=== PATIENT | male | born 1990 | race Caucasian/White ===

== ENCOUNTER 2018-01-29 19:01 | Emergency (ER) | payer BC ==
[2018-01-29 19:15] VITALS: BP 161/99
--- NOTE | 2018-01-29 19:31 | UC ---
FLU HPI - HPI Summary HPI Summary: This patient is a 28 year old M [place] [facility] [place] Zeinab with a chief complaint of a general illness for the last week. The patient rates the pain 4/10 in severity. Patient reports myalgia, eye discharge in the morning, pain with deep breaths, nasal congestion, productive cough, sore throat, and ears getting plugged. Patient denies fever. - History of Current Complaint Chief Complaint: UCGeneralIllness Stated Complaint: ACHES, AND CHEST CONGESTION Hx Obtained From: Patient Onset/Duration: Lasting Weeks - 1, Still Present Severity Currently: Mild Severity Initially: Mild Pain Intensity: 4 Pain Scale Used: 0-10 Numeric Associated Signs & Symptoms: Positive: Myalgia, Sore Throat, Nasal Congestion, Headache. Negative: Fever - Allergy/Home Medications Allergies/Adverse Reactions: Allergies Allergy/AdvReac Type Severity Reaction Status Date / Time No Known Allergies Allergy Verified 01/29/18 19:15 Home Medications: Home Medications NK [No Home Medications Reported] 01/29/18 [History Confirmed 01/29/18] PMH/Surg Hx/FS Hx/Imm Hx Other History Of: Negative For: Hepatitis C, Anticoagulant Therapy - Surgical History Surgical History: Yes Surgery Procedure, Year, and Place: infancy, hips. childhood, T&A - Family History Known Family History: Positive: Hypertension - Social History Alcohol Use: Weekly Substance Use Type: Cocaine, Marijuana Substance Use Comment - Amount & Last Used: daily pot, occassional coke Smoking Status (MU): Heavy Every Day Tobacco Smoker Review of Systems Eyes: Other - eye discharge ENT: Sore Throat, Sinus Congestion, Other - plugged ears Respiratory: Cough Cardiovascular: Other - pain with deep breaths Musculoskeletal: Myalgia All Other Systems Reviewed And Are Negative: Yes Physical Exam - Summary Physical Exam Summary: VITAL SIGNS: Reviewed. GENERAL: Patient is a well-developed and nourished male who is lying comfortable in the stretcher. Patient is not in any acute respiratory distress. HEAD AND FACE: Normocephalic EYES: PERRLA, EOMI x 2. EARS: Hearing grossly intact. MOUTH: pharyngeal erythema NECK: Supple, trachea is midline, no adenopathy, no JVD, no carotid bruit. CHEST: Symmetric, no tenderness at palpation LUNGS: coarse breath sounds CVS: Regular rate and rhythm, S1 and S2 present, no murmurs or gallops appreciated. ABDOMEN: Soft, non-tender. Bowel sounds are normal. No abdominal abnormal pulsations. EXTREMITIES: Full ROM in all major joints, no edema, no cyanosis or clubbing. NEURO: Alert and oriented x 3. No acute neurological deficits. Speech is normal and follows commands. SKIN: Dry and warm Triage Information Reviewed: Yes Vital Signs: Initial Vital Signs Temp 98.5 F 01/29/18 19:09 Pulse 97 01/29/18 19:09 Resp 16 01/29/18 19:09 BP 161/99 01/29/18 19:09 Pulse Ox 99 01/29/18 19:09 Vital Signs Reviewed: Yes Diagnostics - Radiology CXR Radiology Interpretation Completed By: ED Physician - NAD. Pending offical report. Flu Course/Dx - Course Course Of Treatment: BP noted and pt advised to f/u with PCP. Patient is a 28- year-old male who presents to the urgent care with dry cough, body aches, and eye discharge. Chest x-ray impression negative for acute cuddy pulmonary disease. Rapid strep is negative. I believe that the symptoms are secondary to viral infection. The patient will be given a position for potassium tablets. Patient is discharged home with follow-up with PCP. - Differential Dx/Diagnosis Provider Diagnoses: URI likely viral. elevated BP without prior dx of htn Discharge - Sign-Out/Discharge Documenting (check all that apply): Patient Departure All imaging exams completed and their final reports reviewed: Yes - Discharge Plan Condition: Stable Disposition: HOME Patient Education Materials: Upper Respiratory Infection (ED) Referrals: No Primary Care Phys,NOPCP [Primary Care Provider] - [facility] [place] [facility] [Outside] Additional Instructions: FOLLOW UP WITH YOUR PRIMARY CARE PROVIDER WITHIN ONE WEEK FOR HIGH BLOOD PRESSURE NOTED TODAY. RETURN TO (URGENT CARE OR THE ED) FOR ANY WORSENING OR NEW SYMPTOMS. - Billing Disposition and Condition Condition: STABLE Disposition: Home - Attestation Statements Document Initiated by Rishi: Yes Documenting Scribe: Alvarez Erickson Provider For Whom Rishi is Documenting (Include Credential): Vasile Rubio MD Scribe Attestation: Alvarez Dougherty scribed for Vasile Rubio MD on 01/29/18 at 1959. Scribe Documentation Reviewed: Yes Provider Attestation: The documentation as recorded by the Alvarez costa accurately reflects the service I personally performed and the decisions made by me, Vasile Rubio MD
--- NOTE | 2018-01-30 08:18 | RAD ---
Indication: Cough. 2 views of the chest including dual energy PA views are reviewed. No prior study is available for comparison. No mediastinal shift is noted. Heart is of normal size and configuration. Lung olivares appear clear. IMPRESSION: No active cardiopulmonary disease is noted. R0
== END 2018-01-29 20:17 | disposition home or self-care (01) ==
LOC: UCEAST 19:01
DX: J06.9 Acute upper respiratory infection, unspecified (principal); R03.0 Elevated blood-pressure reading, without diagnosis of hypertension
CPT/HCPCS: 71046; 87651; 99201; G0463